=== PATIENT | male | born 1975 ===

== ENCOUNTER 2016-04-06 22:14 | Emergency (ER) | payer SELFPAY ==
[~2016-04-06] VITALS: Ht 175.3 cm; Wt 72.7 kg
[2016-04-06 22:23] VITALS: Ht 175.3 cm; Wt 72.7 kg
[2016-04-06 23:27] LABS: BASOPHIL # 0.1 10^3/ul (0.0-0.1); BASOPHILS % 0.5 % (0.0-2.0); EOSINOPHILS # 0.2 10^3/ul (0.0-0.5); EOSINOPHILS % 1.2 % (0.0-7.0); HEMATOCRIT 45.9 % (42.0-52.0); HEMOGLOBIN 15.6 g/dl (14.0-18.0); LYMPHOCYTES # 1.2 10^3/ul (0.8-2.9); LYMPHOCYTES % 8.6 % (15.0-51.0); MEAN CORPUSCULAR HEMOGLOBIN 29.4 pg (29.0-33.0); MEAN CORPUSCULAR HGB CONC 33.9 g/dl (32.0-37.0); MEAN CORPUSCULAR VOLUME 86.7 fl (82.0-101.0); MEAN PLATELET VOLUME 10.1 fl (7.4-10.4); MONOCYTE # 0.5 10^3/ul (0.3-0.9); MONOCYTES % 3.6 % (0.0-11.0); NEUTROPHIL # 11.9 10^3/ul (1.6-7.5); NEUTROPHILS % 86.1 % (39.0-77.0); PLATELET COUNT 306 10^3/UL (140-440); RED BLOOD COUNT 5.29 10^6/ul (4.70-6.10); RED CELL DISTRIBUTION WIDTH 13.7 % (11.5-14.5); UNCORRECTED WBC 13.9 10^3/ul (4.8-10.8); WHITE BLOOD COUNT 13.9 10^3/ul (4.8-10.8)
[2016-04-06 23:36] LABS: CONDITION 1
[2016-04-06 23:40] LABS: ALBUMIN 4.4 g/dl (3.3-4.9); CHLORIDE 102 mmol/L (97-110); SODIUM 143 mmol/L (135-144)
[2016-04-06 23:41] LABS: POTASSIUM 3.8 mmol/L (3.5-5.1)
[2016-04-06 23:43] LABS: ALANINE AMINOTRANSFERASE 42 IU/L (13-69); ALBUMIN/GLOBULIN RATIO 1.33; ALKALINE PHOSPHATASE 102 IU/L (42-121); ANION GAP 17 (8-16); ASPARTATE AMINO TRANSFERASE 41 IU/L (15-46); BILIRUBIN,INDIRECT 0.9 mg/dl (0-1.1); BILIRUBIN,TOTAL 0.9 mg/dl (0.2-1.3); BLOOD UREA NITROGEN 10 mg/dl (7-20); CALCIUM 9.6 mg/dl (8.4-10.2); CARBON DIOXIDE 28 mmol/L (21-31); CREATININE 0.72 mg/dl (0.61-1.24); GLUCOSE 114 mg/dl (70-220); TOTAL PROTEIN 7.7 g/dl (6.1-8.1)
[2016-04-06 23:47] LABS: ADD UMIC YES; URINE BLOOD (Dip) TRACE (NEGATIVE); URINE COLOR LT. YELLOW (YELLOW); URINE GLUCOSE (Dip) NEGATIVE (NEGATIVE); URINE KETONES (Dip) 3+ (NEGATIVE); URINE LEUKOCYTE ESTERASE (Dip) NEGATIVE (NEGATIVE); URINE NITRITE (Dip) NEGATIVE (NEGATIVE); URINE TOTAL PROTEIN (Dip) 1+ (NEGATIVE); URINE UROBILINOGEN (Dip) 4.0 E.U./dL (0.1-1.0)
[2016-04-06 23:51] LABS: ACETAMINOPHEN < 10.0 ug/ml (10.0-30.0); ETHANOL < 10.0 mg/dl; SALICYLATE < 1.0 mg/dl (5.0-30.0)
[2016-04-06 23:52] LABS: URINE BILIRUBIN (Dip) NEGATIVE (NEGATIVE)
[2016-04-07 00:01] LABS: BARBITURATES Negative (NEGATIVE); BENZODIAZEPINES Negative (NEGATIVE); CANNABINOIDS Negative (NEGATIVE); COCAINE Negative (NEGATIVE)
[2016-04-07 00:02] LABS: OPIATES Negative (NEGATIVE)
[2016-04-07 00:18] LABS: BACTERIA,URINE FEW; SQUAMOUS EPITHELIAL CELL,UR FEW; URINE RBCS 0-2 /HPF (0)
--- NOTE | 2016-04-07 00:48 | PSY ---
Date/Time of Note Date/Time of Note DATE: 04/07/16 TIME: 00:40 Psychiatric Subjective Eval Consent Pt consented to telemedicine: Yes Subjective Evaluation Patient location: emergency Chief Complaint: meth x 18 hours ago; paranoid behavior, currently cooperative Reason for consult: hallucination History of present illness patient is a 40 yo male with PPH Of depression , anxiety and methamphetamine abuse who came to the ER due to hallucination. Patient states that he is hearing voices but they do not tell him to hurt himself or other, he is feeling paranoid for the past 24 hres, patient states that he has been feeling depressed for months due to homelessness and his methamphetamine use , he has been very anxious, irritable and suffering from insomnia, denies any past or current suicidal ideation or suicidal attempt, he is feeling paranoid but no desire to hurt people. Past psychiatric history no past suicidal attempt Hospitalization: no Family History denies Medical history as per record Allergies: Coded Allergies: No Known Allergy (Unverified , 04/06/16) Substance Abuse Substance abuse history: Yes (amphetamine ) Prior substance abuse treatmen: No Social History Marital status: single Level of education: hs DPA/Conservatorship: No Occupation/Correction: unemployed Psychiatric Objective Eval Physical Examination: Physical Examination: Applicable Sleep: Insomnia Appetite: Decreased Energy: Increased Interest: Increased Mental Status Examination: Appearance: Disheveled Eye Contact: Fair Psychomotor Activity: Normal Behavior: Cooperative Speech: Clear AFFECT: Anxious Mood: Anxious Though Process: Linear Thought Content: Delusions, Hallucinations Suicidal: No Homicidal: No On 72 hour hold: No Cognition: Alert Insight: Intact Judgement: Intact Attention Span: Intact Laboratory Results Laboratory Tests Test 04/06/16 23:09 04/06/16 23:34 Acetaminophen Level < 10.0ug/ml Alanine Aminotransferase (ALT/SGPT) 42IU/L Albumin 4.4g/dl Albumin/Globulin Ratio 1.33 Alkaline Phosphatase 102IU/L Anion Gap 17 Aspartate Amino Transf (AST/SGOT) 41IU/L Basophils # 0.110^3/ul Basophils % 0.5% Blood Urea Nitrogen 10mg/dl Calcium Level 9.6mg/dl Carbon Dioxide Level 28mmol/L Chloride Level 102mmol/L Creatinine 0.72mg/dl Direct Bilirubin 0.00mg/dl Eosinophils # 0.210^3/ul Eosinophils % 1.2% Ethyl Alcohol Level < 10.0mg/dl Globulin 3.30g/dl Glucose Level 114mg/dl Hematocrit 45.9% Hemoglobin 15.6g/dl Indirect Bilirubin 0.9mg/dl Lymphocytes # 1.210^3/ul Lymphocytes % 8.6% Mean Corpuscular Hemoglobin 29.4pg Mean Corpuscular Hemoglobin Concent 33.9g/dl Mean Corpuscular Volume 86.7fl Mean Platelet Volume 10.1fl Monocytes # 0.510^3/ul Monocytes % 3.6% Neutrophils # 11.910^3/ul Neutrophils % 86.1% Nucleated Red Blood Cells # 0.010^3/ul Nucleated Red Blood Cells % 0.0/100WBC Platelet Count 33913^3/UL Potassium Level 3.8mmol/L Red Blood Count 5.2910^6/ul Red Cell Distribution Width 13.7% Salicylates Level < 1.0mg/dl Sodium Level 143mmol/L Total Bilirubin 0.9mg/dl Total Protein 7.7g/dl White Blood Count 13.910^3/ul Urine Amphetamines Screen POSITIVE Urine Bacteria FEW Urine Barbiturates Negative Urine Benzodiazepines Screen Negative Urine Bilirubin NEGATIVE Urine Cannabinoids Negative Urine Clarity CLEAR Urine Cocaine Screen Negative Urine Color LT. 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 Based on available evidence, this condition CAN be safely treated at a lower level of care effective today. Patient is stable without clear and convincing evidence of imminent danger due to mental illness that require acute inpatient psychiatric care as the least restrictive alternative. Please discharge patient with referral for follow up to a outpatient mental health clinic for psychotherapy and medication. NAHOMY DONALD MD Apr 07, 2016 00:48
[2016-04-07] MEDS ORDERED: HALOPERIDOL 5 MG TAB PO ONE (01:00)
[2016-04-07] MEDS ORDERED: LORAZEPAM 1 MG TAB PO ONE (01:00)
[2016-04-07] MEDS ORDERED: HALOPERIDOL 1 MG TAB PO ONE (01:00)
--- NOTE | 2016-04-07 01:40 | ERD ---
ER Documentation Chief Complaint Date/Time DATE: 04/07/16 TIME: 01:38 Chief Complaint meth x 18 hours ago; paranoid behavior, currently cooperative HPI There is a 40-year-old male who is in meth for the past 18 hours and is having paranoid behavior and thinks people are trying to kill him. Patient is an avid methamphetamine user using almost daily. Patient states "meth is great " ROS All systems reviewed and are negative except as per history of present illness. Medications Home Meds No Active Prescriptions or Reported Meds Allergies Allergies: Coded Allergies: No Known Allergy (Unverified , 04/06/16) PMhx/Soc Medical and Surgical Hx: pt denies Medical Hx, pt denies Surgical Hx History of Surgery: No Anesthesia Reaction: No Hx Neurological Disorder: No Hx Respiratory Disorders: No Hx Cardiac Disorders: No Hx Psychiatric Problems: No Hx Miscellaneous Medical Probl: No Hx Alcohol Use: No Hx Substance Use: Yes (CRYSTAL METH 18 HRS AGO) Hx Tobacco Use: Yes Smoking Status: Current every day smoker Physical Exam Vitals Vital Signs Date Time Temp Pulse Resp B/P Pulse Ox O2 Delivery O2 Flow Rate FiO2 04/06/16 22:23 98.6 115 20 170/94 97 Physical Exam Const: [] Head: Atraumatic Eyes: Normal Conjunctiva ENT: Normal External Ears, Nose and Mouth. Neck: Full range of motion..~ No meningismus. Resp: Clear to auscultation bilaterally Cardio: Regular rate and rhythm, no murmurs Abd: Soft, non tender, non distended. Normal bowel sounds Skin: No petechiae or rashes Back: No midline or flank tenderness Ext: No cyanosis, or edema Neur: Awake and alert Psych: Normal Mood and Affect Result Diagram: 04/06/16230804/06/162308 Results 24 hrs Laboratory Tests Test 04/06/16 23:09 04/06/16 23:34 Acetaminophen Level < 10.0ug/ml Alanine Aminotransferase (ALT/SGPT) 42IU/L Albumin 4.4g/dl Albumin/Globulin Ratio 1.33 Alkaline Phosphatase 102IU/L Anion Gap 17 Aspartate Amino Transf (AST/SGOT) 41IU/L Basophils # 0.110^3/ul Basophils % 0.5% Blood Urea Nitrogen 10mg/dl Calcium Level 9.6mg/dl Carbon Dioxide Level 28mmol/L Chloride Level 102mmol/L Creatinine 0.72mg/dl Direct Bilirubin 0.00mg/dl Eosinophils # 0.210^3/ul Eosinophils % 1.2% Ethyl Alcohol Level < 10.0mg/dl Globulin 3.30g/dl Glucose Level 114mg/dl Hematocrit 45.9% Hemoglobin 15.6g/dl Indirect Bilirubin 0.9mg/dl Lymphocytes # 1.210^3/ul Lymphocytes % 8.6% Mean Corpuscular Hemoglobin 29.4pg Mean Corpuscular Hemoglobin Concent 33.9g/dl Mean Corpuscular Volume 86.7fl Mean Platelet Volume 10.1fl Monocytes # 0.510^3/ul Monocytes % 3.6% Neutrophils # 11.910^3/ul Neutrophils % 86.1% Nucleated Red Blood Cells # 0.010^3/ul Nucleated Red Blood Cells % 0.0/100WBC Platelet Count 29008^3/UL Potassium Level 3.8mmol/L Red Blood Count 5.2910^6/ul Red Cell Distribution Width 13.7% Salicylates Level < 1.0mg/dl Sodium Level 143mmol/L Total Bilirubin 0.9mg/dl Total Protein 7.7g/dl White Blood Count 13.910^3/ul Urine Amphetamines Screen POSITIVE Urine Bacteria FEW Urine Barbiturates Negative Urine Benzodiazepines Screen Negative Urine Bilirubin NEGATIVE Urine Cannabinoids Negative Urine Clarity CLEAR Urine Cocaine Screen Negative Urine Color LT. YELLOW Urine Glucose NEGATIVE% Urine Hemoglobin TRACE Urine Ketones 3+ Urine Leukocyte Esterase NEGATIVE Urine Microscopic RBC 0-2/HPF Urine Microscopic WBC 0-2/HPF Urine Nitrite NEGATIVE Urine Opiates Screen Negative Urine Specific [place] 1.025 Urine Squamous Epithelial Cells FEW Urine Total Protein 1+ Urine Urobilinogen 4.0 E.U./dL Urine pH 7.0 Current Medications Medications (Trade) Dose Ordered Sig/Pablo Route PRN Reason Start Time Stop Time Status Last Admin Dose Admin Lorazepam (Ativan) 2 mg ONCE ONCE PO 04/07/16 01:00 04/07/16 01:01 DC 04/07/16 01:02 Haloperidol (Haldol) 5 mg ONCE ONCE PO 04/07/16 01:00 04/07/16 01:01 UNV Haloperidol (Haldol) 5 mg ONCE ONCE PO 04/07/16 01:00 04/07/16 01:01 DC 04/07/16 01:02 Procedures/MDM Patient's behavioral symptoms have stabilized while in the department. Patient is medically cleared and appropriate for psychiatric evaluation and work up. No e/o neurologic, toxic, infectious, or metabolic cause. Patient was evaluated by Dr. Quintanilla. Found to be stable for outpatient management. Patient be discharged home with Haldol and Ativan to be taken at night per Dr. Quintanilla Departure Diagnosis: Primary Impression: Methamphetamine abuse Condition: Stable HANNA DAWKINS Apr 07, 2016 01:40
[2016-04-07] MEDS ORDERED: LORA1TAB PO (01:41)
[2016-04-07] MEDS ORDERED: HAL5 PO (01:41)
[2016-04-07 16:32] VITALS: BP 129/78; PULSE 78; RESP 18; TEMP 98.7
== END 2016-04-07 16:33 | disposition home or self-care (01) ==
LOC: E/R 22:14
DX: F15.10 Other stimulant abuse, uncomplicated (principal); F17.210 Nicotine dependence, cigarettes, uncomplicated; R40.2142 Coma scale, eyes open, spontaneous, at arrival to emergency department; R40.2242 Coma scale, best verbal response, confused conversation, at arrival to emergency department; R40.2362 Coma scale, best motor response, obeys commands, at arrival to emergency department
CPT/HCPCS: 36415; 80053; 80306; 80307; 81001; 81003; 85025; 99284